=== PATIENT | female | born 1980 | race Caucasian/White ===

== ENCOUNTER 2016-05-30 16:24 | Emergency (ER) | payer OTHER ==
[~2016-05-30] VITALS: Ht 177.8 cm; Wt 127.3 kg
[~2016-05-30 16:24] MED LIST: DOXY25TA36 PO; PHE25 PO; PREN1TAB47 PO; VIC5 PO
[2016-05-30 16:30] VITALS: BP 155/106; PULSE 71; RESP 20; O2SAT 99
--- NOTE | 2016-05-30 16:59 | ED.REPORT ---
HPI-Chest Pain Under 40 Date of Service May 30, 2016 ED Provider: Dr. Ndiaye Pt is a 36 year old female presenting to the ED complaining of intermittent 6/ 10 chest pain/tightness radiating to her back onset 3 days ago, with episodes lasting for hours. Associated symptoms include SOB, blurred vision, dizziness, lightheadedness, palpitations, also intermittent lasting for minutes. Denies nausea, vomiting, fevers, chills. She denies any major stressors or hx of anxiety. Nursing Notes Stated Complaint: CHEST PAIN/SOB Chief Complaint: Chest Pain Nursing Notes Reviewed: Yes Allergies: Coded Allergies: codeine (Verified Allergy, Unknown, 01/15/09) morphine (Verified Adverse Reaction, Mild, Restlessness, 01/15/09) PT STATES MORPHINE MAKES HER SHAKY, HOT Scheduled Vit/Fe Fumarate/Fa-Expunged Drug, Do (-Expunged Drug, Do Not Renew!) 1 Tab Tablet 1 TAB PO DAILY Scheduled PRN Doxylamine Succ-Expunged Drug, Do Not Renew! (Unisom Sleep Aid-Expunged Drug, Do Not Renew!) 25 Mg Tablet 25 MG PO HS PRN PRN Hydrocod/APAP-Expunged, Do Not Renew! (Vicodin-Expunged Drug, Do Not Renew) 1 Tab Tab 1-2 TAB PO Q4-6H PRN PRN Promethazine-Expunged Drug, Do Not Renew! (Phenergan-Expunged Drug, Do Not Renew !) 25 Mg Tablet 25 MG PO Q8 PRN PRN take 1/2 - 1 tab General Time Seen by MD: 16:58 Chief Complaint Chest pain Hx Obtained From: Patient Arrived By: Walk-in Sudden in Onset?: Yes Onset Occurred: 3 days ago Symptom Duration: Since onset Location: : Chest left Quality: Heaviness, Painful Radiation: : Does not radiate Migration/Movement: Reports: None Severity: Current: Moderate Severity: Maximum: Moderate Recent Healthcare: No recent doctor visit, No recent hospitalization Similar Sx Previous: No Past Medical History Past Medical History Migraines Hx of sepsis secondary to gastric bypass surgery 16 years ago Past Surgical History Gastric bypass 16 years ago Reports: Cholecystectomy Smoking History Unknown if Ever Smoker Ambulatory Status Independent Review of Systems Constitutional: Denies: Chills, Fever Respiratory: Reports: Shortness of breath Cardiovascular: Reports: Palpitations GI: Denies: Nausea, Vomiting Neurologic: Reports: Dizziness, Lightheaded Complete sys rev & neg: except as marked. Eyes: Reports: Blurred bilateral Physical Exam Initial Vital Signs Vital Signs (First) Date Time Temp Pulse Resp B/P Pulse Ox O2 Delivery O2 Flow Rate FiO2 05/30/16 16:30 36.6 71 20 155/106 99 Room Air Initial VS: Reviewed Head / Eyes: Atraumatic, Normocephalic, PERRL ENT: Mucous membranes moist, Conjunctiva normal, No scleral icterus Neck: Supple, Non-tender, Full range of motion Abdomen / GI: Soft, Non-tender, No guarding, No rebound, No distention Skin: Warm, Dry, No cyanosis Neurologic: Alert, Oriented, Nonfocal Psychiatric: Mood/affect normal, Behavior normal, Normal thought content General/Constitutional: Awake, Alert, Well appearing Respiratory / Chest: Breath sounds NL, Breath sounds = bilat, No respiratory distress, No rales, No rhonchi, No wheezing, No chest tenderness Cardiovascular: Heart rate NL, Regular rhythm, Heart sounds NL, No murmurs, Peripheral circulation NL, Pulses = bilaterally, No gross BP differential Lower Extremity / Pelvis / MS: No edema No calf tenderness. Interpretation & Diagnostics Lab Results Interpretation Result Diagram: 05/30/16 1725 Test 05/30/16 17:25 White Blood Count 8.0th/mm3 (3.8-10.1) Red Blood Count 4.04mil/mm3 (3.90-5.20) Hemoglobin 12.5g/dL (12.0-15.6) Hematocrit 37.1% (35.0-46.0) Mean Corpuscular Volume 91.8fL (81-100) Mean Corpuscular Hemoglobin 30.9pg (27.0-35.0) Mean Corpuscular Hemoglobin Concent 33.7% (32.0-37.0) Red Cell Distribution Width 12.6% (12.3-15.4) Platelet Count 257bil/L (150-400) Neutrophils (%) (Auto) 62.6% (40-74) Lymphocytes (%) (Auto) 27.3% (14-46) Monocytes (%) (Auto) 8.0% (4-12) Eosinophils (%) (Auto) 1.5% (0-5) Basophils (%) (Auto) 0.3% (0-3) Hold Gomez Top Tube Received (Received) ECG Interpretation ECG Interpretation: Normal interval and normal axis. No acute ST or T wave changes. Time: 17:19 Interpreted by: ED physician Normal ECG Interpretation: Normal rate (80) X-Ray Chest Interpretation Chest Xray Interpretation: IMPRESSION: No acute disease Dictated by: Rahul Salcido M.D. on 05/30/2016 at 17:47 View: Portable, 1 view Interpretation / Wet Read by: Interpret - Radiologist Re-Eval/Medical Decision Re-Evaluation/Progress : Time of Eval: 17:49 Patient Status: Condition improved Re-Evaluation/Progress Note: Discussed plan for transfer of care to Dr. Morales. Counseled Regarding: Diagnosis, Lab results, Need for follow-up, When/why to return to ED Discharge & Departure Discharge Condition All VS Reviewed: Yes Condition: Improved Referrals: Elda Bhatti (PCP) Care Transferred to: Transferred to Dr. Morales Care Transferred at: 18:02 Temo Attestation Portions of this note were transcribed by Paulina Mcdowell. I, Dr. Ndiaye personally performed the history, physical exam and medical decision-making; I reviewed and confirmed the accuracy of the information in the transcribed note. Signed by : Temo Floyd, 05/30/2016 and 1800. copies to: Elda Bhatti Jena M MD May 30, 2016 16:59 PAULINA MCDOWELL May 30, 2016 17:11
[2016-05-30 17:39] LABS: BASOPHILS % (AUTO) 0.3 % (0-3); EOSINOPHILS % (AUTO) 1.5 % (0-5); Mean Corpuscular Hemoglobin 30.9 pg (27.0-35.0); Mean Corpuscular Volume 91.8 fL (81-100); NEUTROPHILS % (AUTO) 62.6 % (40-74); Platelet Count 257 bil/L (150-400)
--- NOTE | 2016-05-30 17:49 | DRSVH ---
PROCEDURE: X-RAY CHEST ONE VIEW, PORTABLE ([id number]) INDICATIONS: CHEST PAIN TECHNIQUE: One view of the chest was acquired. COMPARISON: None. FINDINGS: Surgical changes and devices: None. Lungs and pleura: No pleural effusions or pneumothorax. Lungs are clear. Mediastinum: Mediastinal contours appear normal. Heart size is normal. Bones and chest wall: No suspicious bony lesions. Overlying soft tissues appear unremarkable. IMPRESSION: No acute disease Dictated by: Rahul Salcido M.D. on 05/30/2016 at 17:47 Approved by: Rahul Salcido M.D. on 05/30/2016 at 17:47
[2016-05-30] MEDS ORDERED: 0.9% Sodium Chloride 1,000 ML IV ONE (18:00)
[2016-05-30 18:14] LABS: TROPONIN T < 0.010 ug/L (0.0-0.011)
[2016-05-30 18:24] LABS: Magnesium 2.1 mg/dL (1.6-2.6)
--- NOTE | 2016-05-30 18:37 | PCM.EDPN ---
ED Note Date of Service May 30, 2016 1919: Patient rechecked by Dr. Morales after shift-change signover. Interview and exam performed. She reports multiple episodes of rapid heart palpitations associated with diaphoresis, chest pressure, and shortness of breath in the past few days. She is PERC negative. She has not had any of these episodes while in the ED. Discussed work-up results so far. Informed patient of need for repeat troponin. 20:28 - Repeat troponin is negative. Informed pt of results and discharge instructions given. Diagnosis: Palpitations ED Scribe Statement Portions of this note were transcribed by Mick Jose. I, Dr. Morales, personally performed the history, physical exam and medical decision-making; I reviewed and confirmed the accuracy of the information in the transcribed note. Signed by Temo Calvillo, 05/30/16 - 1919 ED Attending Statement I assumed care from Dr. Ndiaye pending lab results. In brief, 36-year-old female with episodes of palpitations and associated dizziness or last couple days. No syncope. Denies chest pain. Troponins negative 2. She is perc negative. We discharged home with plans to follow-up with her primary doctor. She may benefit from a Holter monitor. Return precautions given. Maikel Morales MD May 30, 2016 18:36 MICK JOSE May 30, 2016 19:21
[2016-05-30 18:58] VITALS: BP 135/83; PULSE 83; RESP 15; O2SAT 97
[2016-05-30 20:34] VITALS: BP 137/85; PULSE 82; RESP 12; O2SAT 98
== END 2016-05-30 20:36 ==
LOC: SED 16:24
DX: R00.2 Palpitations (principal); H53.8 Other visual disturbances; R06.02 Shortness of breath; R42 Dizziness and giddiness; Z88.5 Allergy status to narcotic agent
CPT/HCPCS: 36415; 71010; 80053; 83735; 84484; 85025; 85379; 93005; 96360; 99285; J7030